=== PATIENT | male | born 2000 | race African-American/Black ===

== ENCOUNTER → 2019-08-25 | Outpatient (CLI) | payer OTHER ==
--- NOTE | 2019-08-25 18:01 | REP ---
CHEST PA AND LATERAL: 08/25/2019. Clinical history: Fever and cough in an adult Findings: The lungs are well inflated. CP angles sharply defined without effusion or lateral pleural thickening, apical scarring nor pneumothorax. Some minor peribronchial thickening perihilar regions may reflect reactive airway disease or bronchitis. I do not see dense consolidation. The heart, mediastinal and hilar contours are normal. Aorta and airway are grossly intact. There is no widening of the mediastinum. The bones show no compression deformity or focal lesion. Impression: 1. Some perihilar changes of bronchitis or reactive airway disease without dense consolidation, effusion, airway abnormality or other acute finding. Electronically Signed by Ross Sales MD 08/25/2019 05:53 P
== END ==
LOC: M LRY 17:24
PROVIDERS: ATTEND Physician Assistant
DX: R91.8 Other nonspecific abnormal finding of lung field (principal); R50.9 Fever, unspecified; R05 Cough
CPT/HCPCS: 71046; 87804; 94640; G0463